=== PATIENT | male | born 1970 | race Caucasian/White ===

== ENCOUNTER 2022-03-16 12:37 | Outpatient (CLI) | payer BC, SELFPAY ==
[2022-03-16 19:02] LABS: Alanine Aminotransferase 20 U/L (6-50); Albumin Level 4.9 g/dL (3.5-5.1); Alkaline Phosphatase 51 U/L (38-126); Anion Gap 9 mmol/L (8-16); Aspartate Amino Transferase 30 U/L (17-59); Bilirubin,Total 0.6 mg/dL (0.2-1.3); Blood Urea Nitrogen 20 mg/dL (9-20); Calcium 9.8 mg/dL (8.4-10.2); Carbon Dioxide 30 mmol/L (22-30); Chloride 100 mmol/L (98-107); Cholesterol 187 mg/dL (0-200); Estimated Glomerular Filt Rate > 60; Glucose 93 mg/dL (65-110); HDL Direct 47 mg/dL; Potassium 4.2 mmol/L (3.4-5.0); Sodium 139 mmol/L (137-145); Triglycerides 127 mg/dL (<150)
[2022-03-16 19:13] LABS: LDL Cholesterol Direct 103 mg/dL
== END 2022-03-16 12:38 | disposition home or self-care (01) ==
LOC: ANHGOSHLAB 12:39
PROVIDERS: PCP Family Medicine; Visit Provider Family Medicine
DX: Z13.228 Encounter for screening for other metabolic disorders (principal)
CPT/HCPCS: 36415; 80053; 80061

== ENCOUNTER 2022-04-04 09:09 | Outpatient (CLI) | payer BC, SELFPAY ==
--- NOTE | 2022-04-04 09:11 | EST_ITS ---
Patient Info Name: Henok Silverman Age: 51 years : 1970 Gender: Male Ht: 68 in Wt: 213 lbs BSA: 2.18 m2 HR: 73 bpm BP: 120 / 77 mmHg Heart Rhythm: Sinus Rhythm Exam Date: 04/04/2022 9:21 AM Exam Location: [facility] Stress Patient Status: Outpatient Admit Date: 04/04/2022 Staff Ordering Physician: Nawaf Asher DO Attending Provider: Nawaf Asher DO Exercise Technologist: Divine Means CT Exercise Physician: Medardo Huitron DO Exam Type: CA stress test treadmill Study Info Indications R07.9 - Chest pain, unspecified A treadmill exercise stress test was performed. Summary 1. 1. Negative Radhames exercise stress test for ischemic ST changes by ECG criteria. 2. 2. Reduced functional capacity, achieving 7 METs of workload. 3. 3. Appropriate HR response to exercise. 4. 4. Appropriate HR recovery at 1 minute post exercise. 5. 5. No imaging with stress testing. 6. 6. Patient informed of the above results. Protocol: Radhames Stress ECG Details Stage: REST Duration (min): 1 min : 0 sec Speed (mph): 0.0 Grade (%): 0 HR (bpm): 72 SBP (mmHg): 120 DBP (mmHg): 77 METS: --- Stage: REST Duration (min): 5 min : 27 sec Speed (mph): 0.0 Grade (%): 0 HR (bpm): 84 SBP (mmHg): 120 DBP (mmHg): 77 METS: --- Stage: STAGE 1 Duration (min): 1 min : 0 sec Speed (mph): 1.7 Grade (%): 10 HR (bpm): 107 SBP (mmHg): 120 DBP (mmHg): 77 METS: --- Stage: STAGE 1 Duration (min): 2 min : 0 sec Speed (mph): 1.7 Grade (%): 10 HR (bpm): 118 SBP (mmHg): 120 DBP (mmHg): 77 METS: --- Stage: STAGE 1 Duration (min): 3 min : 0 sec Speed (mph): 1.7 Grade (%): 10 HR (bpm): 123 SBP (mmHg): 143 DBP (mmHg): 61 METS: --- Stage: STAGE 2 Duration (min): 1 min : 0 sec Speed (mph): 2.5 Grade (%): 12 HR (bpm): 141 SBP (mmHg): 143 DBP (mmHg): 61 METS: --- Stage: STAGE 2 Duration (min): 2 min : 0 sec Speed (mph): 2.5 Grade (%): 12 HR (bpm): 150 SBP (mmHg): 150 DBP (mmHg): 66 METS: --- Stage: STAGE 2 Duration (min): 3 min : 0 sec Speed (mph): 2.5 Grade (%): 12 HR (bpm): 161 SBP (mmHg): 150 DBP (mmHg): 66 METS: --- Stage: RECOVERY Duration (min): 0 min : 45 sec Speed (mph): 0.0 Grade (%): 0 HR (bpm): 135 SBP (mmHg): 154 DBP (mmHg): 72 METS: --- Rest HR: 84 bpm Peak HR: 162 bpm Rest Sys BP: 120 mmHg Peak Sys BP: 154 mmHg Max Pred HR: 168 bpm % Max Pred HR: 96 % Target HR: 143 bpm Max RPP: 24,948 bpm*mmHg Gutierrez Score: -3 Termination Reason: Reached target heart rate or workload Cardiac Symptoms: Shortness of breath Max ST Seg Deviation: 1.80 mm Total Time: 6 min : 0 sec Rest Xiao BP: 77 mmHg Peak Xiao BP: 72 mmHg Angina Score: None Total METS: 7.1 Resting ECG Sinus rhythm. Stress ECG No ST changes. Arrhythmias None. Report Signatures
== END 2022-04-04 09:10 | disposition home or self-care (01) ==
PROVIDERS: PCP Family Medicine; Visit Provider Family Medicine
DX: R07.9 Chest pain, unspecified (principal)
CPT/HCPCS: 93017

== ENCOUNTER 2023-03-14 20:19 | Emergency (ER) | payer BC, SELFPAY ==
--- NOTE | ~2023-03-14 | CT_ITS ---
EXAMINATION: CT abdomen pelvis w con DATE: 03/14/2023 23:50 INDICATION: Epigastric and right upper quadrant abdominal pain. TECHNIQUE: Computed tomography (CT) of the abdomen and pelvis was performed with 100 mL Omnipaque 350 intravenous contrast. Automated exposure control and iterative reconstruction technique were employe d. The dose-length product was 907.53 mGy-cm. COMPARISON: None. FINDINGS: The visualized portions of the lung bases demonstrate mild atelectasis. No pleural effusion . The heart size is normal. No pericardial effusion. There are cysts in the liver measuring up to 9 m m. The spleen is normal. There are stones in the gallbladder and cystic duct. The gallbladder is norm al in size. No gallbladder wall thickening. There is fat stranding adjacent to the gallbladder neck. The pancreas, adrenal glands, and kidneys are normal. There is prominent fat in the inguinal canals t hat may be hernias. There are no dilated loops of bowel. The appendix is normal. There are no patholo gically enlarged lymph nodes. There is no ascites. There is mild lumbar spondylosis. IMPRESSION: 1. Cholelithiasis including stone in the cystic duct. Fat stranding adjacent to the gallbladder neck suggests biliary colic. Reviewed, dictated and finalized at location A.
[2023-03-14 20:33] VITALS: BP 129/74; PULSE 59; RESP 16; TEMP 36.4; O2SAT 100
--- NOTE | 2023-03-14 20:36 | ECG_ITS ---
Measurements Intervals Hanna Rate: 60 P: 41 LA: 172 QRS: 19 QRSD: 85 T: 55 QT: 388 QTc: 389 Interpretive Statements SINUS RHYTHM NORMAL ECG NO PREVIOUS ECG AVAILABLE FOR COMPARISON Electronically Signed On 03-15-2023 7:42:18 CDT by Jeffy Mosley M.D.
[2023-03-14 20:54] LABS: Basophils Percent Auto 0.5 % (0.2-1.2); Eosinophils Absolute Auto 0.2 K/mm3 (0-0.3); Eosinophils Percent Auto 2.8 % (0-4.4); Hematocrit 46.9 % (42.0-52.0); Hemoglobin 15.5 g/dL (14.0-18.0); Immature Granulocyte Absolute 0.01 K/mm3 (0.00-0.031); Immature Granulocyte Percent A 0.2 % (0-0.5); Lymphocytes Absolute Auto 2.51 K/mm3 (0.9-3.2); Mean Corpuscular Hemoglobin 27.9 pg (26-34); Mean Corpuscular Volume 84.5 fl (80-100); Mean Platelet Volume 10.7 fl (7.4-10.4); Monocytes Absolute Auto 0.6 K/mm3 (0.1-0.6); Monocytes Percent Auto 9.8 % (2.6-8.5); Neutrophils Absolute Auto 3.1 K/mm3 (1.3-6.7); Neutrophils Percent Auto 47.7 % (45.5-73.1); Platelet Count Result 217 k/mm3 (150-375); Red Blood Count 5.55 M/mm3 (4.6-6.20); Red Cell Distribution Width 13.2 % (11.5-14.5); White Blood Count 6.4 K/mm3 (4.5-10.0)
[2023-03-14 21:05] LABS: Appearance Urine Clear (Clear); Bilirubin Urine Negative (Negative); Blood Urine Negative (Negative); Color Urine Yellow (Yellow); Glucose Urine UA Negative (Negative); Ketones Urine Negative (Negative); Leukocyte Esterase Ur Negative LEU/UL (Negative); Nitrate Urine Negative (Negative); Protein Urine Negative (Negative); Specific Grav Ur 1.021 (1.001-1.035); Urobilinogen Urine 0.2 mg/dL (<2.0)
[2023-03-14 21:11] LABS: Add Urine Microscopic? NO
[2023-03-14 21:18] LABS: Alanine Aminotransferase 29 U/L (6-50); Alkaline Phosphatase 54 U/L (38-126); Anion Gap 15 mmol/L (8-16); Aspartate Amino Transferase 28 U/L (17-59); Bilirubin,Total 0.5 mg/dL (0.2-1.3); Blood Urea Nitrogen 23 mg/dL (9-20); Calcium 9.8 mg/dL (8.4-10.2); Carbon Dioxide 27 mmol/L (22-30); Chloride 99 mmol/L (98-107); Estimated CRCL calculation 72 ml/min; Estimated Glomerular Filt Rate > 60; Glucose 115 mg/dL (65-110); Lipase 128 U/L (23-300); Potassium 3.9 mmol/L (3.4-5.0); Sodium 141 mmol/L (137-145)
[2023-03-14 21:28] LABS: Troponin I < 0.012 ng/mL (0.000-0.034)
--- NOTE | 2023-03-14 22:42 | ED.ABDPAIN ---
HPI - Abdominal Pain General Chief Complaint: Abdominal Pain Stated Complaint: abd pain Time Seen by Provider: 03/14/23 21:14 Source: patient Mode of arrival: ambulatory Limitations: no limitations History of Present Illness HPI narrative: Patient is a 52-year-old male who presents to the ED with report of epigastric abdominal pain. Patient reports he has been having intermittent episodes of epigastric abdominal pain for quite some time. He was diagnosed with GERD and started on omeprazole. He does report some improvement with the omeprazole but states he continues to have intermittent severe episodes. He developed a more severe episode of pain last night which resolved on its own, and started again today around 4 PM. He notes he ate taco meat today, but states he has not noticed a significant relation with food with his previous episodes. He tried taking an additional omeprazole but denied relief. He also tried taking Tylenol without relief. He reports increased belching associated with the pain. Patient denies any nausea, vomiting, diarrhea, constipation, rectal bleeding, melena, chest pain, shortness of breath, fevers. Patient reports that his primary ordered cardiac testing, including a cardiac stress test, when the symptoms first began which was negative. Related Data Home Medications Medication Instructions Recorded Confirmed multivitamin 1 tablet PO DAILY 03/16/22 10/18/22 Allergies Allergy/AdvReac Type Severity Reaction Status Date / Time Penicillins Allergy Unknown Rash Verified 10/18/22 14:57 poison julisa extract Allergy Unknown Rash Verified 10/18/22 14:57 Review of Systems Review of Systems: CONSTITUTIONAL: Denies fever, chills, or sweats. CARDIOVASCULAR: See HPI. RESPIRATORY: Denies dyspnea. GASTROINTESTINAL: See HPI. GENITOURINARY: Denies dysuria or hematuria. SKIN: Denies rash or itching. MUSCULOSKELETAL: Denies back pain, joint pain, or myalgia. All systems reviewed & are unremarkable except as noted in HPI and below [facility] Family History Family History Mother Family history of malignant neoplasm Father Family history of type 2 diabetes mellitus Other Diabetes mellitus Social History Social History Smoking status: Never smoker Second hand tobacco smoke exposure: No Alcohol intake: current Substance use: never Substance use type: does not use Lack of Transportation: No Lack of Food: Never True Current Housing: I Have Housing Concerned About Future Housing: No Difficulty Paying Gas/Electric Bills: No Difficulty Paying for Meds: No Currently Unemployed: No Education: Associate Degree Difficulty w/ Childcare or Family Care: No Living arrangements: with family Additional living arrangements comments: Occupation/Education: occupation Gender identity (if verbalized by the patient): Male Sexual Orientation (if Verbalized by the Patient): Straight or Heterosexual Exam Narrative: GENERAL: Well appearing, obese with BMI of 32.4, non-toxic, in no acute distress. HEAD: Normocephalic, atraumatic. NECK: Supple. No adenopathy, no masses. RESPIRATORY: Airway patent, respirations nonlabored. Clear to auscultation bilaterally, no rales, rhonchi, wheezing. CARDIOVASCULAR: Regular rate and rhythm without murmurs, rubs, or gallops. Radial pulses 2+ and equal bilaterally. ABDOMINAL: Soft, mild tenderness in epigastric region and right upper quadrant, reproducing pain. Nondistended, no hepatosplenomegaly. Normoactive BS. MUSCULOSKELETAL: Moves all extremities. Strength/ROM intact without gross deformities. SKIN: Warm, dry, normal color. No rashes. NEURO: A&O X3. Speech clear. Cranial nerves II-XII grossly intact. Steady gait. No ataxic movements. PSYCHIATRIC: Appropriate mood and affect. Normal interaction. Course Vital Signs Vital signs
[2023-03-14] MEDS: BELLADONNA ALK/PHENOB ELIX 10 ML, MAG HYDROX/ALUMINUM HYD/SIMETH 30 ML, LIDOCAINE HCL 2... PO (23:35)
[2023-03-15 01:15] VITALS: BP 142/68; PULSE 70; RESP 15; O2SAT 100
[2023-03-15] MEDS: ONDANSETRON INJ 4 MG/2 ML VIAL IV PUSH (01:15)
[2023-03-15] MEDS: PANTOPRAZOLE SODIUM IV 40 MG VIAL IV PUSH (01:15)
[2023-03-15] MEDS: MORPHINE SULFATE (*CRX) 4 MG/ML INJ IV PUSH (01:15)
[2023-03-15 04:42] VITALS: BP 138/64; PULSE 88; RESP 16; O2SAT 98
== END 2023-03-15 04:43 | disposition home or self-care (01) ==
PROVIDERS: Emergency Medicine; Emergency Provider Physician Assistant; PCP Family Medicine
DX: K80.20 Calculus of gallbladder without cholecystitis without obstruction (principal); R10.13 Epigastric pain
CPT/HCPCS: 36415; 74177; 80053; 81003; 83690; 84484; 85025; 93005; 96374; 96375; 99284; A9270; C9113; J2270; J2405; Q9967

== ENCOUNTER 2023-04-08 09:29 | Outpatient (CLI) | payer BC, SELFPAY ==
[2023-04-08 10:43] LABS: Alanine Aminotransferase 24 U/L (6-50); Albumin Level 4.6 g/dL (3.5-5.1); Alkaline Phosphatase 48 U/L (38-126); Amylase 63 U/L (30-110); Aspartate Amino Transferase 23 U/L (17-59); Bilirubin,Total 0.6 mg/dL (0.2-1.3); Lipase 101 U/L (23-300)
== END 2023-04-08 09:30 | disposition home or self-care (01) ==
LOC: ANHSURGERY 09:30
PROVIDERS: PCP Family Medicine; Visit Provider Surgery
DX: K80.10 Calculus of gallbladder with chronic cholecystitis without obstruction (principal); Z01.818 Encounter for other preprocedural examination
CPT/HCPCS: 36415; 80076; 82150; 83690; 86850; 86900; 86901

== ENCOUNTER 2023-04-10 01:34 | Day surgery (SDC) | payer BC, SELFPAY ==
--- NOTE | 2023-04-08 08:10 | SUR.PREOP ---
Addendum entered by Valerie Velasco RN 04/08/23 08:23: INSTRUCTED TO BATHE WITH HIBICLENS SOAP PM OR AM OF SURGERY. Original Note: Report to the Outpatient Waiting Room, entrance under the [facility] located off [facility], at time 0700 on date 04/10/23. Planned Procedure Time: 0900. Time changes happen often and if your time is changed the preop area will call you the afternoon before. - You and your visitor will be asked to self-screen and do not enter if you have any COVID symptoms. - A mask is optional within the hospital at this time. Patients may have clear liquids (water, carbonated beverages, clear teas, apple juice) until 3 hours prior to surgery with a maximum of 20 ounces. - NO CLEAR LIQUIDS AFTER 0600 - No food from midnight until time of surgery - Infants may have breast milk until 4 hours before surgery, formula 6 hours prior to surgery. - Children will be allowed to drink immediately following surgery. If applicable, please bring a bottle or sippy cup to assist with drinking. Juice, water, soda, and popsicles are readily available. For infants on formula, please bring formula the day of surgery. Pacifiers are allowed. Take the following medications with a SIP of water the morning of surgery: N/A DO NOT STOP ANY OF YOUR OTHER PRESCRIPTION MEDICATIONS PRIOR TO SURGERY ?EXCEPT THE FOLLOWING Medications to discontinue per physician MULTIVITAMIN Date to take last dose 04/05/23 Please no make-up, nail kittitian, hairspray, perfume, deodorant, or body powder the day of surgery. No jewelry (including any body piercings) or valuables the day of surgery, leave them at home. Please take a shower or bath the night before, or the morning of, surgery with an antibacterial soap. Wear comfortable, loose fitting clothing. Children are encouraged to wear pajamas. - Jewelry must be removed prior to entering the operating room. Rings and piercings that are not removed may be cut off. - The hospital will not accept responsibility for valuables. - Please leave all valuables, including medications, at home the day of surgery. If you are going home after surgery, a licensed waste collection driver must drive you home. - NO public transportation without another adult if you receive anesthesia. - We recommend that an adult stay with you for 24 hours following discharge. - We also recommend that you do not drive, make important decision, drink alcoholic beverages, or take any drugs that were not prescribed by your health care provider for at least 24 hours after your discharge time. For Pediatric surgeries, we recommend two adults accompany the child home. Follow any additional instructions given to you from your surgeon. If you or anyone in your household have experienced Covid symptoms in the past week, please notify your surgeon or the nurse liaison at the phone number below for possible testing. Telephone instructions given to APOLONIA HURST and asked if any additional questions and then verbalized understanding. Patient advised to call surgeon office or pre surgery nurse liaison [phone] if any additional questions.
[2023-04-08 08:24] VITALS: BMI 32.1
--- NOTE | 2023-04-09 20:39 | P.PNAN_ITS ---
Anes - Initial Pre Proc Eval Procedure: Operation Date: 04/10/23 09:00 Proposed Procedures p Laparoscopic Cholecystectomy - Romeo Dumas MD Date/Time: 04/09/23 20:39 Surgeon: Romeo Dumas MD Pre Op Diagnosis: chronic cholecystitis calculous Patient Data Age: 52 Gender: M Height: 1.73 m Weight: 96 kg Allergies Allergy/AdvReac Type Severity Reaction Status Date / Time Penicillins Allergy Unknown Rash Verified 04/08/23 08:20 poison julisa extract Allergy Unknown Rash Verified 04/08/23 08:20 Home Medications Medication Instructions Recorded Confirmed Type multivitamin 1 tablet PO DAILY 03/16/22 04/08/23 History omeprazole 20 mg capsule,delayed 20 mg PO DAILY #90 caps 04/08/23 04/08/23 Rx release Patient hx anesthesia problems: none Family hx anesthesia problems: none Results Review: All pre-operative results and documents have been reviewed as part of the pre- operative evaluation. [facility] Past Medical History Medical History (Updated 04/09/23 @ 20:39 by Merlin Maldonado DO) Gastroesophageal reflux disease Family History Family History Mother Family history of malignant neoplasm Father Family history of type 2 diabetes mellitus Heart disease Other Diabetes mellitus Social History Social History Smoking status: Never smoker Second hand tobacco smoke exposure: No Substance use: never Substance use type: does not use Lack of Transportation: No Lack of Food: Never True Current Housing: I Have Housing Concerned About Future Housing: No Difficulty Paying Gas/Electric Bills: No Difficulty Paying for Meds: No Currently Unemployed: No Education: Associate Degree Difficulty w/ Childcare or Family Care: No Living arrangements: with family Additional living arrangements comments: Occupation/Education: occupation Gender identity (if verbalized by the patient): Male Sexual Orientation (if Verbalized by the Patient): Straight or Heterosexual Spiritual care concerns: No Anes - Eval Final PreProcedure Day of Procedure 04/09/23 20:39 Patient weight: obese Heart: regular rate and rhythm Lungs: clear to auscultation Airway: Mallampati scale class II Neurological: alert and oriented Last oral intake: >/= 8 hours ASA classification: II Emergent: no Anesthetic plan: proceed Anesthesia type and monitoring: general ETT and standard monitoring Results Review: All pre-operative results and documents have been reviewed as part of the pre- operative evaluation. Informed Consent: The patient's anesthetic plan and its attendant risks and benefits were discussed with the patient/family/POA. Questions were solicited and answers provided to the satisfaction of the patient/family/POA.
[2023-04-10] VITALS (10 sets, daily range): BP systolic 112–125; BP diastolic 65–80; PULSE 74–92; RESP 16–20; TEMP 36.7–36.9; O2SAT 95–100
[2023-04-10] MEDS: ACETAMINOPHEN 500 MG TABLET 1000 MG PO (08:13)
[2023-04-10] MEDS: LACTATED RINGERS 1,000 ML 30 ML IV CONT ×2 (08:15→10:37)
[2023-04-10] MEDS: KETOROLAC 15 MG/ML VIAL (*BKC) IV PUSH (08:23)
--- NOTE | 2023-04-10 08:47 | WPDHPUPDATE1 ---
History and Physical Update Update Date/Time: 04/10/23 08:47 History and Physical has been reviewed, including an updated exam of the patient. There are NO changes in the patient's condition. Risks, benefits, and alternatives have been discussed and questions answered. Patient agrees to proceed with procedure.
[2023-04-10] MEDS: ceFAZolin 2 GM/D5W 50 ML 2 GM/50 ML BAG IVPB (08:57)
[2023-04-10] MEDS: BUPIVACAINE/EPINEPHRINE 0.5% 50 ML VIAL INFILTRATE (10:16)
--- NOTE | 2023-04-10 10:28 | W.PM.PROC2 ---
Procedure Note - Detailed Date of Procedure 04/10/23 Pre-op Diagnosis chronic cholecystitis calculous Post-op Diagnosis Same Procedure Performed Laparoscopic cholecystectomy Surgeon Romeo Dumas MD Certified Veterinary Technician MP [facility] Anesthesia General and Local Indications Patient has had multiple episodes of epigastric abdominal pain that were usually not of any substantial problem. In the middle of February, he had severe epigastric abdominal pain after eating some Taco me and had to go to the emergency room. Imaging there showed gallstones and cholecystitis. He was seen in the office. He is continued to have episodes of postprandial epigastric abdominal pain but not severe. He is taken to surgery now for laparoscopic cholecystectomy for chronic cholecystitis Findings Chronic inflammation, fatty liver, no biliary ductal dilatation Description of Procedure Patient was taken to surgery and induced into general anesthesia. The abdomen was prepped and draped. Local was infiltrated prior to placement of each incision and trocar. An epigastric incision was made 1st and the varies needle was introduced. Insufflation was carried out until adequate abdominal distention. An it initial trocar was then placed using applied Medical optical trocar in the epigastric area. From there we then placed the other trocars under direct visualization. Local was infiltrated prior to placement of each of the trocars. The gallbladder was then elevated and a laparoscopic aspirator was used to decompress the gallbladder. The cholecystotomy was closed with a Vicryl endoloop. The gallbladder was then retracted anterosuperiorly. There were omental adhesions to the undersurface of the right lobe of the liver. These were taken down sharply with use of some cautery. Patient had fatty liver and even gentle tension would tend to pull the capsule off the liver requiring cautery. Gentle retraction of the gallbladder resulted in some capsular injury to the liver near the fundus which also required cautery. Once these adhesions were taken down, some additional adhesions in the area of the infundibulum of the gallbladder were taken down. The gallbladder was then able to be retracted anterosuperiorly. Traction was placed on the infundibulum. We then dissected in the cholecystohepatic triangle. Inflammation was severe in this area. There were multiple small vessels in the area as well. There was more bleeding than usual requiring some cautery. Eventually we dissected out the cystic duct and cystic artery. These were dissected out clearly. Then the gallbladder was dissected off the liver at its lower 3rd. Critical view was achieved. We then securely clipped and divided the cystic duct and cystic artery. The gallbladder was then retracted from the liver and we freed the gallbladder from its attachments to the gallbladder fossa. This also was fraught with minor oozing of blood. The gallbladder was densely adherent to the liver which made the dissection a bit more difficult. Nonetheless we continued our dissection and eventually we were able to free the gallbladder from the liver entirely. I then exposed the liver and used cautery to achieve some hemostasis. The gallbladder was then placed in an Endo-Catch bag. It was extricated through the epigastric trocar site. We then returned our attention to the gallbladder fossa and right upper quadrant. Suctioning and irrigation was carried out. Some additional cautery on the liver at the gallbladder fossa was carried out to achieve good hemostasis. Eventually all looked good. The irrigant was coming back clear. There was no evidence of bleeding or bile leakage. We then removed the instruments and evacuated CO2. The trocars were removed. Skin wounds were closed with subcuticular running 4-0 Monocryl skin suture. The wounds were dressed with Exofin surgical adhesive. The patient was awakened and taken to recovery in good condition. Spo
[2023-04-10] MEDS: ONDANSETRON INJ 4 MG/2 ML VIAL IV PUSH (11:44)
[2023-04-10] MEDS: oxyCODONE HCL (*CRX) 5 MG TAB IR PO (11:56)
== END 2023-04-10 12:55 | disposition home or self-care (01) ==
PROVIDERS: PCP Family Medicine; Visit Provider Surgery
PROC: 0FT44ZZ Resection of Gallbladder, Percutaneous Endoscopic Approach (ICD-10-PCS; CPT 47562; principal; 2023-04-10 09:00)
DX: K80.10 Calculus of gallbladder with chronic cholecystitis without obstruction (principal); K21.9 Gastro-esophageal reflux disease without esophagitis; E66.9 Obesity, unspecified; Z68.32 Body mass index [BMI] 32.0-32.9, adult
CPT/HCPCS: 47562; 88304; A9270; C1713; J0690; J1100; J1885; J2250; J2405; J2704; J3010; J7120

== ENCOUNTER 2025-04-22 08:00 | Outpatient (CLI) | payer BC, SELFPAY ==
--- OUTSIDE RECORDS SUMMARY | 2025-04-22 08:08 | XMS_ITS | Clinical Summary ---
Author Organization [facility] Address [address] [place] [id number] Care Team Providers Care Seismic Prospecting Observer Name Role Phone Andre Patel MD Primary Care Provider [phone] Allergies No known active allergies Medications multivitamin (DAILY MULTI-VITAMIN) tablet daily Active Active Problems Problem Noted Date Diagnosed Date Chronic pain of left knee 01/09/2019 Family History Medical History Relation Name Comments Cancer Other Diabetes Other Heart disease Other Relation Name Status Comments Other Social History Tobacco Use Types Packs/Day Years Used Date Smoking Tobacco: Never Smokeless Tobacco: Never Alcohol Use Standard Drinks/Week Comments Yes 0 (1 standard drink = 0.6 oz pur e alcohol) Personal Safety Answer Date Recorded Getting School Help Needed Not on file 10/12 Sex and Gender Information Value Date Recorded Sex Assigned at Not on file 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 Gender Identity Not on file Sexual Orientation Not on file 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
== END 2025-04-22 08:01 | disposition home or self-care (01) ==
LOC: ANHCARD 08:00
PROVIDERS: PCP Nurse Practitioner Family; Visit Provider Nurse Practitioner Family
DX: I49.1 Atrial premature depolarization (principal); I47.10 Supraventricular tachycardia, unspecified; I49.3 Ventricular premature depolarization; I49.40 Unspecified premature depolarization; R00.2 Palpitations; R06.09 Other forms of dyspnea; Z82.49 Family history of ischemic heart disease and other diseases of the circulatory system
CPT/HCPCS: 93242